=== PATIENT | male | born 1965 | race Caucasian/White ===

== ENCOUNTER 2018-06-06 16:52 | Inpatient (IN) | payer OTHER, MEDICAID ==
[~2018-06-06] VITALS: Ht 172.7 cm; Wt 74.8 kg
[2018-06-06] MEDS ORDERED: SODIUM CHLORIDE 0.9% 1,000 ML IV ONE (17:33)
[2018-06-06 17:42] LABS: HEMATOCRIT. 38.8 % (42.0-52.0); HEMOGLOBIN. 13.1 g/dL (14.0-18.0); MEAN CORPUSCULAR HEMOGLOBIN 31.7 pg (28.0-32.0); MEAN CORPUSCULAR VOLUME 94.1 fL (80.0-94.0); MEAN PLATELET VOLUME 7.7 fl (7.4-10.4); PLATELET 442 x1000/uL (130-400); RED BLOOD CELL COUNT 4.12 mill/uL (4.7-6.1)
[2018-06-06 17:49] LABS: CHLORIDE 104 mEq/L (98-107)
[2018-06-06 18:17] LABS: PLATELET ESTIMATE NORMAL
[2018-06-06] MEDS ORDERED: LORAZEPAM 2MG/ML CPJ IV ONE (18:30)
[2018-06-06] MEDS ORDERED: ONDANSETRON HCL 4MG/2ML INJ IV PRN (20:45)
[2018-06-06] MEDS ORDERED: DOCUSATE SODIUM 100MG CAPSULE PO PRN (20:45)
[2018-06-06] MEDS ORDERED: ACETAMINOPHEN 325MG TABLET PO PRN (20:45)
[2018-06-06] MEDS ORDERED: CLONIDINE 0.1MG TABLET PO PRN (20:45)
[2018-06-06] MEDS ORDERED: IPRATROPIUM/ALBUTEROL 0.5-3(2.5)MG/3ML NEB INH PRN (20:45)
[2018-06-06] MEDS ORDERED: MAGNESIUM/ALUMINUM HYDROXIDE/SIMETHICONE 30ML UDC PO PRN (20:45)
[2018-06-06 21:57] LABS: CLARITY URINE CLEAR (CLEAR); COLOR URINE YELLOW (YELLOW); KETONES URINE NEGATIVE (NEGATIVE); LEUKOCYTE ESTERASE URINE NEGATIVE (NEGATIVE); NITRITE URINE NEGATIVE (NEGATIVE); OCCULT BLOOD URINE NEGATIVE (NEGATIVE); PROTEIN URINE 1+ (NEGATIVE); SPECIFIC GRAVITY URINE 1.011 (1.005-1.030); UROBILINOGEN URINE 0.2 E.U./dL (0.2-1.0)
[2018-06-06 22:19] LABS: *COCAINE SCREEN URINE NEGATIVE (NEGATIVE); METHADONE URINE SCREEN NEGATIVE (NEGATIVE)
[2018-06-06 22:20] LABS: *AMPHETAMINES SCREEN URINE NEGATIVE (NEGATIVE); *BARBITURATES SCREEN URINE NEGATIVE (NEGATIVE); *BENZODIAZEPINES SCREEN URINE NEGATIVE (NEGATIVE); CANNABINOID URINE SCREEN NEGATIVE (NEGATIVE); OPIATES URINE SCREEN NEGATIVE (NEGATIVE); PHENCYCLIDINE URINE SCREEN NEGATIVE (NEGATIVE)
[2018-06-06 22:56] LABS: AMMONIA 26 uMol/L (<32)
[2018-06-07] VITALS: BP 135/86
[2018-06-07] MEDS: SODIUM CHLORIDE 0.9% 1,000 ML IV SCH ×2 (01:26→16:28)
[2018-06-07 04:00] VITALS: BP 107/66
[2018-06-07 04:31] VITALS: BP 107/66
[2018-06-07] MEDS: OMEPRAZOLE 20MG CAPSULE EXTENDED RELEASE PO SCH (06:14)
[2018-06-07 07:35] LABS: EOSINOPHILS % 0.6 % (0.0-5.0); HEMOGLOBIN. 12.8 g/dL (14.0-18.0); LYMPHOCYTES % 18.4 % (20.0-50.0); MEAN CORPUSCULAR HEMOGLOBIN 32.3 pg (28.0-32.0); MEAN CORPUSCULAR VOLUME 93.6 fL (80.0-94.0); MEAN PLATELET VOLUME 7.8 fl (7.4-10.4); MONOCYTES % 7.8 % (2.0-8.0); NEUTROPHILS % 72.2 % (40.0-76.0); PLATELET 413 x1000/uL (130-400); RED BLOOD CELL COUNT 3.96 mill/uL (4.7-6.1); RED CELL DISTRIBUTION WIDTH 14.2 % (11.6-14.6)
[2018-06-07 08:00] VITALS: BP 108/70
[2018-06-07 08:12] LABS: CHLORIDE 106 mEq/L (98-107)
[2018-06-07 08:20] LABS: CREATINE KINASE 465 IU/L (39-308)
[2018-06-07 16:00] VITALS: BP 126/67
[2018-06-07 20:00] VITALS: BP 110/90
[2018-06-07] MEDS: CARBAMAZEPINE 200MG TABLET PO SCH (21:20)
[2018-06-07] MEDS ORDERED: LORA-250 PO (21:36)
[2018-06-07] MEDS ORDERED: LINA290C PO (21:36)
[2018-06-08] VITALS: BP 123/80
[2018-06-08] MEDS: SODIUM CHLORIDE 0.9% 1,000 ML IV SCH ×2 (02:30→06:19)
[2018-06-08 04:00] VITALS: BP 131/72
[2018-06-08] MEDS: OMEPRAZOLE 20MG CAPSULE EXTENDED RELEASE PO SCH (06:19)
[2018-06-08 08:00] VITALS: BP 117/71
[2018-06-08 08:37] LABS: BASOPHILS % 1.2 % (0.0-2.0); EOSINOPHILS % 0.8 % (0.0-5.0); HEMATOCRIT. 36.3 % (42.0-52.0); HEMOGLOBIN. 12.2 g/dL (14.0-18.0); LYMPHOCYTES % 17.2 % (20.0-50.0); MEAN CORPUSCULAR HEMOGLOBIN 31.3 pg (28.0-32.0); MEAN CORPUSCULAR VOLUME 93.1 fL (80.0-94.0); MEAN PLATELET VOLUME 7.8 fl (7.4-10.4); MONOCYTES % 7.6 % (2.0-8.0); NEUTROPHILS % 73.2 % (40.0-76.0); PLATELET 379 x1000/uL (130-400); RED CELL DISTRIBUTION WIDTH 13.8 % (11.6-14.6)
[2018-06-08 09:04] LABS: CHLORIDE 106 mEq/L (98-107)
[2018-06-08] MEDS: CARBAMAZEPINE 200MG TABLET PO SCH ×2 (09:54→21:27)
[2018-06-08 12:00] VITALS: BP 112/76
[2018-06-08 16:00] VITALS: BP 100/62
[2018-06-08 20:00] VITALS: BP 99/68
[2018-06-09] VITALS: BP 127/70
[2018-06-09 04:00] VITALS: BP 100/69
[2018-06-09] MEDS: OMEPRAZOLE 20MG CAPSULE EXTENDED RELEASE PO SCH (06:57)
[2018-06-09 06:58] LABS: BASOPHILS % 0.5 % (0.0-2.0); EOSINOPHILS % 0.2 % (0.0-5.0); HEMATOCRIT. 36.2 % (42.0-52.0); HEMOGLOBIN. 12.5 g/dL (14.0-18.0); LYMPHOCYTES % 10.1 % (20.0-50.0); MEAN CORPUSCULAR VOLUME 92.6 fL (80.0-94.0); MEAN PLATELET VOLUME 7.8 fl (7.4-10.4); NEUTROPHILS % 83.2 % (40.0-76.0); PLATELET 373 x1000/uL (130-400); RED CELL DISTRIBUTION WIDTH 13.8 % (11.6-14.6)
[2018-06-09 07:17] LABS: CHLORIDE 107 mEq/L (98-107)
[2018-06-09 08:00] VITALS: BP 106/53
[2018-06-09] MEDS: CARBAMAZEPINE 200MG TABLET PO SCH ×2 (09:38→21:23)
[2018-06-09 12:00] VITALS: BP 107/54
[2018-06-09] MEDS ORDERED: LORAZEPAM 2MG/ML CPJ IV SCH (14:45)
[2018-06-09 16:00] VITALS: BP 92/51
[2018-06-09 20:00] VITALS: BP 109/61
[2018-06-09] MEDS: FAMOTIDINE 20MG TABLET PO SCH (21:23)
[2018-06-10] VITALS: BP 114/73
[2018-06-10 04:00] VITALS: BP 90/42
[2018-06-10 06:15] LABS: HEMATOCRIT 34.6 % (42.0-52.0); HEMOGLOBIN 11.8 g/dL (14.0-18.0); MEAN CORPUSCULAR HEMOGLOBIN 31.9 pg (28.0-32.0); MEAN CORPUSCULAR VOLUME 93.3 fL (80.0-94.0); PLATELET 347 x1000/uL (130-400); RED BLOOD CELL COUNT 3.71 mill/uL (4.7-6.1); RED CELL DISTRIBUTION WIDTH 13.9 % (11.6-14.6)
[2018-06-10 06:26] LABS: CHLORIDE 107 mEq/L (98-107)
[2018-06-10 08:00] VITALS: BP_SYST 116; BP_DIAS 46; BP_DIAS 56
[2018-06-10] MEDS: CARBAMAZEPINE 200MG TABLET PO SCH ×2 (09:28→21:42)
[2018-06-10] MEDS: FAMOTIDINE 20MG TABLET PO SCH ×2 (10:34→21:42)
[2018-06-10 12:00] VITALS: BP 119/65
[2018-06-10 16:00] VITALS: BP 107/52
[2018-06-10] MEDS: SODIUM CHLORIDE 0.9% 1,000 ML IV SCH (17:45)
[2018-06-10 20:00] VITALS: BP 100/52
[2018-06-11] VITALS: BP 103/58
[2018-06-11 04:00] VITALS: BP 116/69
[2018-06-11] MEDS: SODIUM CHLORIDE 0.9% 1,000 ML IV SCH ×3 (05:08→23:17)
[2018-06-11 08:00] VITALS: BP 114/69
[2018-06-11] MEDS: CARBAMAZEPINE 200MG TABLET PO SCH ×2 (09:20→22:06)
[2018-06-11] MEDS: FAMOTIDINE 20MG TABLET PO SCH ×2 (09:20→22:06)
[2018-06-11 12:18] VITALS: BP 136/77
[2018-06-11 16:00] VITALS: BP 81/51
[2018-06-11 20:00] VITALS: BP 112/61
[2018-06-12] VITALS: BP 109/60
[2018-06-12 04:00] VITALS: BP 123/74
[2018-06-12 08:00] VITALS: BP 114/67
[2018-06-12] MEDS: CARBAMAZEPINE 200MG TABLET PO SCH ×2 (11:25→20:17)
[2018-06-12] MEDS: FAMOTIDINE 20MG TABLET PO SCH ×2 (11:25→20:17)
[2018-06-12 12:00] VITALS: BP 126/92
[2018-06-12 16:00] VITALS: BP 96/49
[2018-06-12 20:00] VITALS: BP 109/84
[2018-06-12] MEDS: SODIUM CHLORIDE 0.9% 1,000 ML IV SCH ×2 (20:17→23:17)
[2018-06-13] VITALS: BP 117/58
[2018-06-13 04:00] VITALS: BP 121/74
[2018-06-13 07:48] LABS: BASOPHILS % 0.8 % (0.0-2.0); EOSINOPHILS % 0.5 % (0.0-5.0); HEMATOCRIT. 33.1 % (42.0-52.0); HEMOGLOBIN. 11.2 g/dL (14.0-18.0); MEAN CORPUSCULAR HEMOGLOBIN 31.3 pg (28.0-32.0); MEAN CORPUSCULAR VOLUME 92.3 fL (80.0-94.0); MEAN PLATELET VOLUME 8.2 fl (7.4-10.4); MONOCYTES % 6.2 % (2.0-8.0); NEUTROPHILS % 71.5 % (40.0-76.0); PLATELET 314 x1000/uL (130-400); RED BLOOD CELL COUNT 3.59 mill/uL (4.7-6.1)
[2018-06-13 08:00] VITALS: BP 136/83
[2018-06-13 08:17] LABS: CHLORIDE 109 mEq/L (98-107)
[2018-06-13] MEDS: CARBAMAZEPINE 200MG TABLET PO SCH (10:04)
[2018-06-13] MEDS: FAMOTIDINE 20MG TABLET PO SCH (10:04)
[2018-06-13] MEDS ORDERED: POTASSIUM CHLORIDE 20MEQ TABLET SR PO NR (11:45)
[2018-06-13 12:00] VITALS: BP 110/70
[2018-06-13] MEDS: SODIUM CHLORIDE 0.9% 1,000 ML IV SCH (12:22)
[2018-06-13 16:00] VITALS: BP 118/69
[2018-06-13 16:54] VITALS: BP 118/69
== END 2018-06-13 17:50 | DRG 100 ==
LOC: ER 18:00 → 5WST 20:33 → EDBEDREQ 20:35 → EDBEDREQTM 20:35 → ENRESERV 21:44
PROVIDERS: ADMIT Family Medicine Adult Medicine; ATTEND Family Medicine Adult Medicine
DX: R56.9 Unspecified convulsions (principal); G92 Toxic encephalopathy; M62.82 Rhabdomyolysis; I25.3 Aneurysm of heart; K30 Functional dyspepsia; K59.00 Constipation, unspecified; G31.9 Degenerative disease of nervous system, unspecified; R90.82 White matter disease, unspecified; Q90.9 Down syndrome, unspecified; F03.90 Unspecified dementia, unspecified severity, without behavioral disturbance, psychotic disturbance, mood disturbance, and anxiety; I10 Essential (primary) hypertension; K21.9 Gastro-esophageal reflux disease without esophagitis; Z79.899 Other long term (current) drug therapy
CPT/HCPCS: 36415; 80048; 80305; 82140; 82550; 84484; 85027; 93005; 93306; 93880; 96361; 96374; 97163; 99285; A6261; J2060; J7030